=== PATIENT | female | born 1945 ===

== ENCOUNTER 2017-12-30 06:54 | Outpatient (CLI) | payer MEDICARE ==
--- NOTE | 2017-12-30 08:33 | Ultrasound Report ---
Procedure Date: 12/30/2017 Accession Number: [id number] / [id number] Procedure: US - Abdomen Limited CPT Code: FULL RESULT: EXAM: Abdomen Limited DATE: 12/30/2017 7:42 AM CLINICAL HISTORY: UNSPECIFIED ABDOMINAL PAIN COMPARISON: None. TECHNIQUE: Real-time scanning was performed with static images obtained. FINDINGS: Liver: The liver demonstrates a coarse echotexture with suggestion of a nodular surface and measures at least 14.7 cm. Main portal vein flow: Hepatopetal. Gallbladder: Normal. No stones, wall thickening, or sonographic Ruiz's sign. Biliary System: Common bile duct measures 5 mm. No intrahepatic or extrahepatic ductal dilatation. Pancreas: Visualized portion is unremarkable. Kidneys: Right: 10.3 cm longitudinally. Normal. No contour-deforming mass, stones, or hydronephrosis. The IVC is patent by color Doppler. IMPRESSION: Coarse liver echotexture with suggestion of a nodular contour and multiple views. RADIA
== END 2017-12-30 06:55 | disposition home or self-care (01) ==
LOC: DI 06:54
PROVIDERS: ATTEND Family Medicine
DX: R10.9 Unspecified abdominal pain (principal)
CPT/HCPCS: 76705

== ENCOUNTER 2022-05-28 08:03 | Outpatient (CLI) | payer MEDICARE ==
--- NOTE | 2022-05-28 11:30 | DEXA Report ---
PROCEDURE: Dexa Spine and/or Hip INDICATIONS: OSTEOPOROSIS TECHNIQUE: Dual energy x-ray absorptiometry (DXA) was performed on a Chikka System. Regions measur ed are the AP Spine, femoral neck, and if needed forearm. COMPARISON: DEXA 10/20/2014. FINDINGS: Lumbar Spine: Bone Mineral Density 0.951 g/cm/cm, T score -1.9, osteopenia Left Femoral Neck: Bone Mineral Density 0.785 g/cm/cm, T score -1.8, osteopenia Left Hip: Bone Mineral Density 0.789 g/cm/cm, T score -1.7, osteopenia (T score greater or equal to -1.0: NORMAL) (T score from -1.1 to -2.4: OSTEOPENIA) (T score less than or equal to -2.5 to: OSTEOPOROSIS) Impression: Lumbar spine and left hip osteopenia. Patients with diagnosis of osteoporosis or osteopenia should have regular bone mineral density assess ment. For those eligible for Medicare, routine testing is allowed once every 2 years. Testing frequ ency can be increased for patients who have rapidly progressing disease or for those who are receivin g medical therapy to restore bone mass. Reviewed by: Deondre Carter MD on 05/28/2022 11:29 AM PST Approved by: Deondre Carter MD on 05/28/2022 11:29 AM PST Station ID: [id number]
== END 2022-05-28 08:04 | disposition home or self-care (01) ==
LOC: DI 08:03
PROVIDERS: ATTEND Family Medicine
DX: Z78.0 Asymptomatic menopausal state (principal); M85.89 Other specified disorders of bone density and structure, multiple sites

== ENCOUNTER 2022-09-16 09:59 | Outpatient (CLI) | payer MEDICARE ==
--- NOTE | 2022-09-16 11:05 | SLEEP CARE CONSULTATION ---
Information from patient questionnaire entered by Isabella Lozada. I have reviewed and concur with the information entered by Isabella Lozada. This document represents the service I personally performed and the decisions made by me, Rocío Salas ARNP. History of Present Illness Service Date and Time: 09/16/2022 0959 Reason for Visit: New patient, Other Chief Complaint: reports: Snoring, Excessive daytime sleepiness, Fatigue Date of Onset: 10YRS Usual bedtime: 10PM Time it takes to fall asleep: 30MIN AFTER TAKING SLEEPING AIDS Snores at night: Yes Sleeps alone due to snoring: Yes Number of times waking at night: 2 Reasons for waking at night: reports: Choking, Snoring, Gasping for air, Pain, Bathroom, Other (NOISE) Toss, Turn, or Twitch while sleeping: Yes Recalls having dreams: Yes Usually gets out of bed at: 6AM Feels refreshed in the morning: Yes Morning headache: No Sleepy or fatigued during the day: Yes Ever fallen asleep while driving: No Takes day naps: Yes (30-60 mins daily) Dreams during day naps: Yes Prior sleep studies: No Additional HPI information: I had the pleasure of seeing DAMARI CROW today regarding the possibility of her having a sleep disorder. Her current complaint is that she snores very loudly at night. She also is very tired during the day and will fall asleep daily for a nap. Patient's primary language is [place] Islander. Interpreters John, ID# [id number] and Javi Gatica, ID# [id number], assisted in communication during visit. She states that she has woken herself up with her snoring. Her has told her that she breathes very hard at night. She has woke up gasping or choking in her sleep. - Parasomnia Symptoms Ever been unable to move upon waking from sleep: No Walks in sleep: No Talks in sleep: No Ever acted out dreams in sleep: No Ever felt weak in the knees when startled or emotional: No Bothered by creepy, crawly, restless sensations in legs: No Problems with memory or concentration: No Subjective Initial [place] Sleepiness Scale score: 10 (09/16/22) Past Medical History Past Medical History: reports: Arthritis (knees), GERD Social History The patient's occupation is a RETIRED. Patient is and lives in [place]. Have you smoked in the past 12 months: No Alcohol use: No Caffeine use: No Family History Family history of sleep disordered breathing: No Allergies and Home Medications Known drug allergies: No Drug allergies reviewed: Yes Home medication list reviewed: Yes (see updated listed in EMR) Review of Systems Weight loss over past 5 years: 30 lbs Cardiovascular: denies: high blood pressure Gastrointestinal: reports: nausea Neurological: denies: headaches Psychiatric: denies: anxiety, depression Ear/Nose/Throat: reports: dry mouth/throat (very dry in mornings) Musculoskeletal: reports: joint pain Immunologic: reports: sneezing, itching, allergies to food or environment Physical Exam Vital signs obtained and entered by: ISABELLA Bravo MA Blood Pressure: 128/64 (LEFT ARM) Cuff size: regular Heart Rate: 89 O2 Saturation: 95 Height: 5 ft 3 in Weight: 110 lb Body Mass Index: 19.5 BMI Classification: Normal Neck circumference: 13.5 Mouth and throat: normal Soft palate: long Hard palate: normal Uvula: normal Uvula visualization: 50% Mallampati Class II Tongue: normal in size Tonsils: small Neck: normal w/o lymphadenopathy or thyromegaly Heart: regular rate and rhythm Lungs: clear bilaterally Impression and Plan 1. Suspected Obstructive Sleep Apnea-Hypopnea Syndrome, as suggested by a history of loud and irregular snoring, gasping or choking in sleep, cognitive impairment, and excessive daytime sleepiness. Narrow oropharynx and obesity are common predisposing factors for obstructive sleep apnea-hypopnea syndrome. I recommend proceeding to polysomnography to confirm the diagnosis and to assess severity. If the patient has significant sleep disordered breathing, a manual CPAP titration study will also be performed to find the optimal treatment pressure. I informed the patient of what the sleep studies involve and after some discussion, obtained agreement to proceed. The pathophysiology of obstructive sleep apnea-hypopnea syndrome was discussed with the patient and health risks of cardiovascular and cerebrovascular disease if not treated. Risks of drowsy driving discussed in detail and patient advised to avoid long distance driving and to pull up hand at the first sign of drowsiness. Patient states, through transfer station operator, that she understands teaching and agrees to plan. * Schedule polysomnography +- manual CPAP titration study and return in 1-2 weeks after the study to discuss result and initiate therapy. * Review instructions provided by trained office staff on how to prepare for the sleep study. * Return for follow-up after sleep study completed. Visit Type: In Office Time Spent with Patient (minutes): 36 Provider Statement: I spent 100% of the Face to Face Visit with the patient with greater than 50% spent counseling the patient and coordination of care.
[2022-09-16 11:06] VITALS: BP 128/64
== END 2022-09-16 10:00 | disposition home or self-care (01) ==
LOC: SC 09:59
PROVIDERS: ATTEND Nurse Practitioner Family
DX: R53.83 Other fatigue (principal); R06.83 Snoring
CPT/HCPCS: 99203; G0463; 99212

== ENCOUNTER 2022-10-23 13:56 | Outpatient (CLI) | payer MEDICARE | END 2022-10-23 13:57 | disposition home or self-care (01) | LOC: SC 13:56 | PROVIDERS: ATTEND Nurse Practitioner Family | DX: G47.33 Obstructive sleep apnea (adult) (pediatric) (principal); R09.02 Hypoxemia; R00.0 Tachycardia, unspecified | CPT/HCPCS: G0399 ×2; 95806 ==

== ENCOUNTER 2022-10-29 12:43 | Outpatient (CLI) | payer MEDICARE ==
--- NOTE | 2022-10-29 13:40 | SLEEP CARE CONSULTATION ---
Information from patient questionnaire entered by Isabella Lozada. I have reviewed and concur with the information entered by Isabella Lozada. This document represents the service I personally performed and the decisions made by me, Rocío Salas ARNP. History of Present Illness Service Date and Time: 10/29/2022 1243 Initial [place] Sleepiness Scale score: 10 (09/16/22) Current [place] Sleepiness Scale score: 7 (10/29/22) Additional HPI information: DAMARI CROW returns for follow up and results of the recently performed home sleep study. She is primarily [place] speaking. We had an patternmaker apprentice wood Marie #[id number] to help with effective communication. I explained the pathophysiology behind obstructive sleep apnea. We then spent quite a bit of time discussing different treatment options. For mild obstructive sleep apnea, surgery and oral appliance are alternatives to nasal CPAP therapy but in moderate or severe cases, nasal CPAP is the most effective and reliable treatment. After some discussion, the patient opted to go with the nasal CPAP therapy. Nasal autoCPAP set at 4-15 cmH20 will be ordered with rationale explained. A manual titration study will be ordered if unable to find optimal pressure with office adjustments. I explained how CPAP machine works and what to expect when using the machine. Using CPAP every night in order to get used to it was emphasized. Patient advised to put CPAP mask on before getting into bed so as not to fall asleep without CPAP. To assist acclimation to CPAP use, it could also be used for a short time during day while reading or watching TV. The patient was instructed to call the CPAP supplier to discuss any mechanical problem that may occur. If the mask given is uncomfortable or is difficult to keep on through the night even with adjustment, contact the CPAP supplier as many will replace with another mask style if notified before 30 days. If snoring or perceives is not getting enough air or too much air from the machine, notify this office. Patient was cautioned about risks of drowsy driving until sleepiness symptoms resolve. Sleep Study - Results Type of Sleep Study: Home sleep study (COMPLETED 10/23/22) Prior sleep studies: No Polysomnography/Home Sleep Study results: Physician Impression: The quality of the study is good. The length of the study is adequate (> 240 minutes). Please also see the tabulated and graphic data. 1. Obstructive Sleep Apnea-Hypopnea (ICD-10 G47.33), mild, with an AHI of 10.6/hr and kiley SaO2 of 82%. During the study, the patient had 48 apneas (48 obstructive, 0 central, 0 mixed) and 37 hypopneas. The longest episode lasted 79.5 seconds. The patient did not sleep supine during this study. 2. Hypoxemia (ICD-10 R09.02), mild, with the lowest oxygen saturation of 82 % and 19.3 minutes with SaO2 under 90%. Baseline oxygen saturation was normal (Average oxygen saturation was 95%). 3. Tachycardia, mild, with maximum recorded heart rate of 128 beats per minute. Allergies and Home Medications Known drug allergies: No Drug allergies reviewed: Yes Home medication list reviewed: Yes (no changes) Allergy and home medication list: Allergies No Known Drug Allergies Allergy Review of Systems Review of systems same as previous: Yes (no changes) Physical Exam Vital signs obtained and entered by: ISABELLA Bravo MA Blood Pressure: 110/64 (LEFT ARM) Cuff size: regular Heart Rate: 79 O2 Saturation: 100 Height: 5 ft 3 in Weight: 117 lb 3.2 oz Body Mass Index: 20.7 BMI Classification: Normal Impression and Plan 1. Obstructive Sleep Apnea-Hypopnea Syndrome, mild, with lowest oxygen saturation of 82%. Obviously this is the cause of the patients symptoms of unrefreshed sleep, and excessive daytime sleepiness. Positive pressure therapy could benefit gastric reflux. As mentioned above, the patient will be started on nasal autoCPAP therapy with pressure set at 4-15 cmH2O. Compliance guidelines also reviewed. A copy of compliance guidelines will be given for reference at check out. 2. Hypoxemia, mild, with a kiley oxygen saturation of 82 % and 19.3 minutes spent under 90%. Her baseline oxygen saturation was normal with an average oxygen saturation of 95 %. * Nasal auto CPAP therapy, pressure at 4-15 cm H2O. * Avoid alcohol consumption near bedtime. * Avoid supine sleep until using CPAP. * The patient is again cautioned about driving until sleepiness completely resolves. * Return one month after CPAP obtained. I will assess response to therapy and compliance at that time. Visit Type: In Office Time Spent with Patient (minutes): 21 Provider Statement: I spent 100% of the Face to Face Visit with the patient with greater than 50% spent counseling the patient and coordination of care.
[2022-10-29 13:42] VITALS: BP 110/64
== END 2022-10-29 12:44 | disposition home or self-care (01) ==
LOC: SC 12:43
PROVIDERS: ATTEND Nurse Practitioner Family
DX: G47.33 Obstructive sleep apnea (adult) (pediatric) (principal); R09.02 Hypoxemia
CPT/HCPCS: 99213; G0463; 99212

== ENCOUNTER 2022-12-18 14:17 | Outpatient (CLI) | payer MEDICARE ==
--- NOTE | 2022-12-19 09:22 | Mammography Report ---
BILATERAL DIGITAL SCREENING MAMMOGRAM 3D/2D: 12/18/2022 CLINICAL: Routine screening. Comparison is made to exam dated: 10/20/2014 mammogram - [facility]. There are scattered areas of fibroglandular density in both breasts (category b / 25%-50% glandular t issue). There are benign calcifications in both breasts. No significant masses, calcifications, or other findings are seen in either breast. There has been no significant interval change. IMPRESSION: BENIGN There is no mammographic evidence of malignancy. A 1 year screening mammogram is recommended. Based on the Tyrer Cuzick model (a risk assessment model) the patients lifetime risk is 3.9% and her 10 year risk is 3.9%. According to the ACR, ACS, and NCCN guidelines, an annual breast MRI exam ilan g with mammogram is recommended if the patients lifetime risk is 20% or greater. This exam was interpreted at Station ID: [id number]. NOTE: For mammograms, a report in lay terms will be sent to the patient. Approximately 15% of breast malignancies will not be visualized mammographically. In the management of a palpable breast mass, a negative mammogram must not discourage biopsy of a clinically suspicious lesion. Electronically Signed By: Timoteo houston/shayne:12/18/2022 15:30:53 letter sent: No_Letter ACR BI-RADS Category 2: Benign Finding(s) 3342F PARENCHYMAL PATTERN: (A) - The breast(s) demonstrate(s) scattered fibroglandular densities. BI-RADS CATEGORY: (2) - 2 Mammogram [id number] 1 year screening LATERALITY: (B)
== END 2022-12-18 14:18 | disposition home or self-care (01) ==
LOC: DI 14:17
PROVIDERS: ATTEND Family Medicine
DX: Z12.31 Encounter for screening mammogram for malignant neoplasm of breast (principal)

== ENCOUNTER 2023-01-02 08:56 | Outpatient (CLI) | payer MEDICARE ==
--- NOTE | 2023-01-02 10:03 | Sleep Patient Instructions ---
Sleep Center Visit Summary - Patient Visit Information Reason for Visit: First compliance visit for CPAP therapy - Patient Instructions Additional Instructions: You were here for follow up of CPAP therapy. You will be continued on CPAP therapy with pressure at 4-15 cmH2O. You were fitted to a Respironics DreamWisp mask for you to try at home. You should follow up with sleep care in 1-2 months. You may contact us sooner for any questions or concerns. - Clinic Information Contact: [facility] [address] [place] [address] [email or web address] T: [phone]
--- NOTE | 2023-01-02 10:07 | SLEEP CARE CONSULTATION ---
Information from patient questionnaire entered by Isabella Lozada. I have reviewed and concur with the information entered by Isabella Lozada. This document represents the service I personally performed and the decisions made by , Rocío Salas ARNP. History of Present Illness Service Date and Time: 01/02/2023 0856 Previous diagnosis: Mild, Obstructive Sleep Apnea-Hypopnea Syndrome AHI: 10.6 (in 2022) Reason for follow up: first compliance Equipment type: CPAP (Resmed 11) Equipment obtained from: [employer] (got initial supplies) Mask style: Nasal (Airfit N20) Mask brand: Resmed Backup mask available: No (will keep old mask when replaced) Last cushion change: 1 week Prior sleep studies: No Type of Sleep Study: Home sleep study (COMPLETED 10/23/22) HPI additional information: DAMARI CROW was diagnosed to have mild, AHI 10.6, obstructive sleep apnea-hypopnea syndrome and returned today for CPAP therapy first compliance follow-up. Patient is a Icelandic speaker. [employer] interpreting used for effective communication, healthcare interpreter: Lis #[id number]. Sleep Study - Results Type of Sleep Study: Home sleep study (COMPLETED 10/23/22) Prior sleep studies: No CPAP Compliance Data Compliance data discussion: There is no data because of issue with data download thru [employer] site. She has only used it for a week. Subjective Patient concerns: reports: mask discomfort (leaking of mask), mask leak noise. denies: aerophagia, air blowing in eyes, condensation in mask/hose, nasal congestion, dry mouth, nose, throat, epistaxis Observed to snore while using device: No Current pressure setting perceived as: comfortable On therapy, patient: reports: sleeping better, awakening more refreshed. denies: drowsiness while driving Initial [place] Sleepiness Scale score: 10 (09/16/22) Current [place] Sleepiness Scale score: 15 Allergies and Home Medications Known drug allergies: No Drug allergies reviewed: Yes Home medication list reviewed: Yes (no changes) Allergy and home medication list: Allergies No Known Drug Allergies Allergy (Verified 01/01/23 14:12) Review of Systems Review of systems same as previous: No (Anemia) Physical Exam Vital signs obtained and entered by: ISABELLA Bravo MA Blood Pressure: 122/70 (LEFT ARM) Cuff size: regular Heart Rate: 74 O2 Saturation: 99 Height: 5 ft 3 in Weight: 121 lb 9.6 oz Body Mass Index: 21.5 BMI Classification: Normal Impression and Plan 1. Obstructive Sleep Apnea-Hypopnea Syndrome, mild, with unknown treatment co mpliance and unknown apnea control. On CPAP therapy, the patient has better sleep quality and is more rested overall. Patient states she is doing well with the machine and wearing it for 4 hours a night. She has only used it for a week. She states the mask she is using is leaking and noisy. I fitted her to a [id number] small cushion mask to try at home. I will have her come in 1-2 months to recheck compliance and data. Hopefully the ResMed issue will be fixed by that time. Patient's apnea severity and rationale for treatment to reduce apnea, improve sleep quality and reduce cardiovascular and cerebrovascular events was reviewed. I also reviewed the benefit of consistent device use of CPAP for gastric reflux. * Continue auto CPAP pressure at 4-15 cmH2O * Notify me if snoring with mask or feeling that the pressure is too much or too little * Call this office if any problems using CPAP * Return for follow up in 1-2 months, or sooner if concerns arise Counseling Topics: Spare mask Visit Type: In Office Time Spent with Patient (minutes): 29 Provider Statement: I spent 100% of the Face to Face Visit with the patient with greater than 50% spent counseling the patient and coordination of care.
[2023-01-02 10:12] VITALS: BP 122/70; O2SAT 99
== END 2023-01-02 08:57 | disposition home or self-care (01) ==
LOC: SC 08:56
PROVIDERS: ATTEND Nurse Practitioner Family
DX: G47.33 Obstructive sleep apnea (adult) (pediatric) (principal)
CPT/HCPCS: 99213; G0463; 99212

== ENCOUNTER 2023-03-13 08:33 | Outpatient (CLI) | payer MEDICARE ==
--- NOTE | 2023-03-13 09:33 | Sleep Patient Instructions ---
Sleep Center Visit Summary - Patient Visit Information Reason for Visit: 2 month follow up - Patient Instructions Additional Instructions: You were here for follow up of CPAP therapy. You will be continued on CPAP therapy with pressure at 10-14 cmH2O. Please let us know if the pressure change is uncomfortable and we can make further adjustments of the pressure. You should follow up with sleep care in 1-2 months. You may contact us sooner for any questions or concerns. - Clinic Information Contact: [facility] [address] [place] [id number] [email or web address] T: [phone]
--- NOTE | 2023-03-13 09:43 | SLEEP CARE CONSULTATION ---
Information from patient questionnaire entered by Isabella Lozada. I have reviewed and concur with the information entered by Isabella Lozada. This document represents the service I personally performed and the decisions made by , Rocío Salas ARNP. History of Present Illness Service Date and Time: 03/13/2023 0833 Previous diagnosis: Mild, Obstructive Sleep Apnea-Hypopnea Syndrome AHI: 10.6 (in 2022) Reason for follow up: other (2 MONTH F/U) Equipment type: CPAP (Resmed 11; s/u 10/2022) Equipment obtained from: [employer] (getting supplies) Mask style: Nasal (Airfit N20) Backup mask available: No (will need to call to get more supplies; keep old mask) Prior sleep studies: No Type of Sleep Study: Home sleep study (COMPLETED 10/23/22) HPI additional information: DAMARI CROW was diagnosed to have mild, AHI 10.6, obstructive sleep apnea-hypopnea syndrome and returned today for CPAP therapy 2 month follow-up. Her primary language is Gambian. [employer] interpreting services were utilized for communication with Kwame, ID# [id number]. Sleep Study - Results Type of Sleep Study: Home sleep study (COMPLETED 10/23/22) Prior sleep studies: No CPAP Compliance Data - Data Reviewed with Patient Average duration of nightly device use: 3 hours 18 mins Compliance rate %: 22 (48/60 days used) Current pressure setting (cmH2O): 4-15 (median 9.8, avg 13.5, max 14.1) Average residual AHI: 1.7 Central apnea: 0 Obstructive apnea: 0.3 Hypopnea: 1.3 Average large leak: 7.6 L/min Subjective Missed days of use due to: reports: other (machine not working one day because did not put together right; otherwise only sleep about 3 hours or so) Patient concerns: reports: mask leak noise. denies: aerophagia, mask discomfort, air blowing in eyes, condensation in mask/hose, nasal congestion, dry mouth, nose, throat, epistaxis Observed to snore while using device: No Current pressure setting perceived as: comfortable On therapy, patient: reports: sleeping better, awakening more refreshed, being more awake and alert during the day, more rested overall. denies: drowsiness while driving (does not drive, no car) Initial [place] Sleepiness Scale score: 10 (09/16/22) Current [place] Sleepiness Scale score: 14 (03/13/23) Allergies and Home Medications Known drug allergies: No Drug allergies reviewed: Yes Home medication list reviewed: Yes (no changes) Allergy and home medication list: Allergies No Known Drug Allergies Allergy (Verified 03/12/23 12:35) Review of Systems Review of systems same as previous: Yes (NO CHANGE) Physical Exam Vital signs obtained and entered by: ISABELLA Bravo MA Blood Pressure: 128/72 (LEFT ARM) Heart Rate: 85 O2 Saturation: 98 Height: 5 ft 3 in Weight: 130 lb 12.8 oz Body Mass Index: 23.1 BMI Classification: Normal Impression and Plan 1. Obstructive Sleep Apnea-Hypopnea Syndrome, mild, with poor treatment compliance and good apnea control. On CPAP therapy, the patient has better sleep quality and is more rested overall. She states she only sleeps 3 hours or more nightly. I am not sure she fully understands the concept of compliance. I stressed using the CPAP for 4 hours or more, trying to get more than 3 hours of sleep nightly. She voiced understanding. The patients pressure will be changed to autoCPAP 10-14 cmH20 to reflect pressure being used. Patient advised to contact me if pressure change is uncomfortable so that it can be adjusted. Goals for apnea control discussed. Patient's apnea severity and rationale for treatment to reduce apnea, improve sleep quality and reduce cardiovascular and cerebrovascular events was reviewed. I also reviewed the benefit of consistent device use of CPAP for gastric reflux. * Change auto CPAP pressure to 10-14 cmH2O * Notify me if snoring with mask or feeling that the pressure is too much or too little * Attempt to lose weight * Call this office if any problems using CPAP * Return for follow up in 1-2 months, or sooner if concerns arise Counseling Topics: Spare mask Follow up with Sleep Care in: 1-2 months Visit Type: In Office Time Spent with Patient (minutes): 26 Provider Statement: I spent 100% of the Face to Face Visit with the patient with greater than 50% spent counseling the patient and coordination of care.
[2023-03-13 09:44] VITALS: BP 128/72; O2SAT 98
== END 2023-03-13 08:34 | disposition home or self-care (01) ==
LOC: SC 08:33
PROVIDERS: ATTEND Nurse Practitioner Family
DX: G47.33 Obstructive sleep apnea (adult) (pediatric) (principal)
CPT/HCPCS: 99213; G0463; 99212

== ENCOUNTER 2023-05-05 08:18 | Outpatient (CLI) | payer MEDICARE ==
--- NOTE | 2023-05-05 08:53 | Sleep Patient Instructions ---
Sleep Center Visit Summary - Patient Visit Information Reason for Visit: Two month followup - Patient Instructions Additional Instructions: You were here for follow up of CPAP therapy. You will be continued on CPAP therapy with pressure at 10-14 cmH2O. You should follow up with sleep care in 3 months. You may contact us sooner for any questions or concerns. - Clinic Information Contact: [facility] [address] [place] [id number] [email or web address] T: [phone]
--- NOTE | 2023-05-05 08:56 | SLEEP CARE CONSULTATION ---
Information from patient questionnaire entered by Isabella Lozada. I have reviewed and concur with the information entered by Isabella Lozada. This document represents the service I personally performed and the decisions made by , Rocío Salas ARNP. History of Present Illness Service Date and Time: 05/05/2023817 Previous diagnosis: Mild, Obstructive Sleep Apnea-Hypopnea Syndrome AHI: 10.6 (in 2022) Reason for follow up: other (2MONTH F/U) Equipment type: CPAP (Resmed 11; s/u 10/2022) Equipment obtained from: [employer] (getting supplies) Mask style: Nasal (Airfit N20) Backup mask available: No Last cushion change: couple months Prior sleep studies: No Type of Sleep Study: Home sleep study (COMPLETED 10/23/22) HPI additional information: DAMARI CROW was diagnosed to have mild, AHI 10.6, obstructive sleep apnea-hypopnea syndrome and returned today for CPAP therapy two month follow-up. Her primary language is Norwegian. [employer] interpreting services were used for effective communication with weekend caregiver Lyly Webb, # [id number]. Sleep Study - Results Type of Sleep Study: Home sleep study (COMPLETED 10/23/22) Prior sleep studies: No CPAP Compliance Data - Data Reviewed with Patient Average duration of nightly device use: 5 HRS 1 MIN Compliance rate %: 77 (03/02/23-04/30/23; 60/60 days used) Current pressure setting (cmH2O): 10-14 Average residual AHI: 1.7 Central apnea: 0.1 Obstructive apnea: 0.1 Average large leak: 8.1 L/min Subjective Patient concerns: reports: air blowing in eyes (little). denies: aerophagia, mask discomfort, mask leak noise, condensation in mask/hose, nasal congestion, dry mouth, nose, throat, epistaxis Observed to snore while using device: No Current pressure setting perceived as: comfortable On therapy, patient: reports: sleeping better, awakening more refreshed, being more awake and alert during the day, more rested overall. denies: drowsiness while driving (She does not drive) Initial [place] Sleepiness Scale score: 10 (09/16/22) Current [place] Sleepiness Scale score: 6 (05/05/23) Allergies and Home Medications Known drug allergies: No Drug allergies reviewed: Yes Home medication list reviewed: Yes (no changes) Allergy and home medication list: Allergies No Known Drug Allergies Allergy (Verified 05/04/23 08:54) Review of Systems Review of systems same as previous: Yes (NO CHANGE) Physical Exam Vital signs obtained and entered by: ISABELLA Bravo MA Blood Pressure: 112/65 (LEFT ARM) Cuff size: regular Heart Rate: 88 O2 Saturation: 96 Height: 5 ft 3 in Weight: 136 lb Body Mass Index: 24.0 BMI Classification: Normal Impression and Plan 1. Obstructive Sleep Apnea-Hypopnea Syndrome, mild, with good treatment compliance and good apnea control. On CPAP therapy, the patient has better sleep quality and is more rested overall. Patient has significant improvement of their sleep apnea and is satisfied with current CPAP therapy. Patient has been able to increase her compliance and is doing well. She has no concerns or complaints today. We were able to adequately address all her needs using the box toe stitcher. I will have her follow-up in about 3 months. Patient's apnea severity and rationale for treatment to reduce apnea, improve sleep quality and reduce cardiovascular and cerebrovascular events was reviewed. I also reviewed the benefit of consistent device use of CPAP for gastric reflux. * Continue auto CPAP pressure at 10-14 cmH2O * Notify me if snoring with mask or feeling that the pressure is too much or too little * Maintain a healthy weight * Call this office if any problems using CPAP * Return for follow up in 3 months, or sooner if concerns arise Counseling Topics: Spare mask Follow up with Sleep Care in: 3 months Visit Type: In Office Time Spent with Patient (minutes): 20 Provider Statement: I spent 100% of the Face to Face Visit with the patient with greater than 50% spent counseling the patient and coordination of care.
[2023-05-05 08:58] VITALS: BP 112/65; O2SAT 96
== END 2023-05-05 08:19 | disposition home or self-care (01) ==
LOC: SC 08:18
PROVIDERS: ATTEND Nurse Practitioner Family
DX: G47.33 Obstructive sleep apnea (adult) (pediatric) (principal)
CPT/HCPCS: 99213; G0463; 99212

== ENCOUNTER 2023-08-04 08:19 | Outpatient (CLI) | payer MEDICARE ==
--- NOTE | 2023-08-04 09:28 | Sleep Patient Instructions ---
Sleep Center Visit Summary - Patient Visit Information Reason for Visit: 3-month follow-up - Patient Instructions Additional Instructions: You were here for follow up of CPAP therapy. You will be continued on CPAP therapy with pressure at 10-14 cmH2O. You should follow up with sleep care in 12 months. You may contact us sooner for any questions or concerns. - Clinic Information Contact: [facility] [address] [place] [address] [email or web address] T: [phone]
--- NOTE | 2023-08-04 09:33 | SLEEP CARE CONSULTATION ---
Information from patient questionnaire entered by Isabella Lozada. I have reviewed and concur with the information entered by Isabella Lozada. This document represents the service I personally performed and the decisions made by , Rocío Salas ARNP. History of Present Illness Service Date and Time: 08/04/2023 08 Previous diagnosis: Mild, Obstructive Sleep Apnea-Hypopnea Syndrome AHI: 10.6 (in 2022) Reason for follow up: three month (F/U) Equipment type: CPAP (Resmed 11; s/u 10/2022) Equipment obtained from: [employer] (getting supplies) Mask style: Nasal (Airfit N20) Backup mask available: Yes Last cushion change: 2 months ago Prior sleep studies: No Type of Sleep Study: Home sleep study (COMPLETED 10/23/22) HPI additional information: DAMARI CROW was diagnosed to have mild, AHI 10.6, obstructive sleep apnea-hypopnea syndrome and returned today for CPAP therapy three month follow- up. Patient primary language is Polish. [employer] interpreting services were used for effective communication. Tear Down Man: Estephania # [id number]. Sleep Study - Results Type of Sleep Study: Home sleep study (COMPLETED 10/23/22) Prior sleep studies: No CPAP Compliance Data - Data Reviewed with Patient Average duration of nightly device use: 4 HRS 23 MINS Compliance rate %: 62 (05/01/23-07/29/23; 80% in last 30 days; 87/90 days used) Current pressure setting (cmH2O): 10-14 Average residual AHI: 1.5 Central apnea: 0.1 Obstructive apnea: 0.1 Hypopnea: 1.2 Average large leak: 7.5 L/min Subjective Patient concerns: reports: mask leak noise. denies: aerophagia, mask discomfort, air blowing in eyes, condensation in mask/hose, nasal congestion, dry mouth, nose, throat, epistaxis Observed to snore while using device: No Current pressure setting perceived as: comfortable On therapy, patient: reports: sleeping better, awakening more refreshed, being more awake and alert during the day, more rested overall. denies: drowsiness while driving Initial [place] Sleepiness Scale score: 10 (09/16/22) Current [place] Sleepiness Scale score: 7 Allergies and Home Medications Known drug allergies: No Drug allergies reviewed: Yes Home medication list reviewed: Yes (no changes) Allergy and home medication list: Allergies No Known Drug Allergies Allergy (Verified 07/31/23 10:45) Review of Systems Review of systems same as previous: Yes (no changes) Physical Exam Vital signs obtained and entered by: ROCÍO MILLER Blood Pressure: 140/77 Cuff size: regular Heart Rate: 81 O2 Saturation: 98 Height: 5 ft 3 in Weight: 147 lb 11.2 oz Weight change since last visit: 11 lbs gain Body Mass Index: 26.2 BMI Classification: Overweight Impression and Plan 1. Obstructive Sleep Apnea-Hypopnea Syndrome, mild, with good treatment compliance and good apnea control. On CPAP therapy, the patient has better sleep quality and is more rested overall. Patient has significant improvement of their sleep apnea and is satisfied with current CPAP therapy. Patient denies problems with oral dryness, nasal congestion, epistaxis, skin irritation or aerophagia. She is doing very well and I think we can follow-up with her next year. She voiced understanding and agreement with plan of care. Patient's apnea severity and rationale for treatment to reduce apnea, improve sleep quality and reduce cardiovascular and cerebrovascular events was reviewed. I also reviewed the benefit of consistent device use of CPAP for gastric reflux. 2. Overweight, unspecified. Currently patients BMI is 26.2. She has gained weight since her last appointment. Obesity increases the risk of apnea, CPAP pressure requirements and overall health risks especially cardiovascular and diabetes. Thus patient is advised to lose weight. * Continue auto CPAP pressure at 10-14 cmH2O * Notify me if snoring with mask or feeling that the pressure is too much or too little * Maintatin a healthy weight * Call this office if any problems using CPAP * Return for follow up in 1 year, or sooner if concerns arise Counseling Topics: Spare mask, Weight control Follow up with Sleep Care in: 1 year Visit Type: In Office Time Spent with Patient (minutes): 25 Provider Statement: I spent 100% of the Face to Face Visit with the patient with greater than 50% spent counseling the patient and coordination of care.
[2023-08-04 09:34] VITALS: BP 140/77; O2SAT 98
== END 2023-08-04 08:20 | disposition home or self-care (01) ==
LOC: SC 08:19
PROVIDERS: ATTEND Nurse Practitioner Family
DX: G47.33 Obstructive sleep apnea (adult) (pediatric) (principal); E66.3 Overweight; Z68.26 Body mass index [BMI] 26.0-26.9, adult
CPT/HCPCS: 99213; G0463; 99212

== ENCOUNTER 2023-11-09 07:43 | Outpatient (CLI) | payer MEDICARE ==
--- NOTE | 2023-11-09 12:02 | Ultrasound Report ---
PROCEDURE: Abdomen Complete INDICATIONS: FECAL INCONTINENCE TECHNIQUE: Real-time scanning was performed of the abdominal and retroperitoneal organs, with image documentatio n. COMPARISON: None. FINDINGS: Liver: Liver is normal in size and heterogeneous in echotexture. Gallbladder: No gallstones, sludge, wall thickening or pericholecystic edema. Biliary ducts: Intrahepatic bile ducts are non-dilated. Extrahepatic bile duct caliber measures 2 mm. Normal is 6-7 mm or less in diameter, or 10 mm or less post-cholecystectomy. Pancreas: Not well visualized due to overlying bowel gas. Spleen: Spleen is normal in size and homogeneous in echotexture. Kidneys: Kidneys are normal in size and echotexture. Right kidney measures 7.7 cm long; left kidney measures 7.7 cm long. No hydronephrosis or nephrolithiasis. No solid masses. No complex renal cyst ic lesions which require follow-up. Aorta: Visualized aorta is normal in caliber at less than 3 cm. Iliacs: Proximal common iliac arteries are normal in caliber at less than 2.5 cm. IVC: Intrahepatic inferior vena cava is patent. Miscellaneous: No free abdominal fluid. IMPRESSION: 1. Slightly limited study due to overlying bowel gas. Pancreas is not well seen. 2. Mildly heterogeneous liver parenchymal echotexture suggestive of hepatic steatosis. No discrete he patic lesion. 3. Rest of the exam is unremarkable. Reviewed by: Lawrence James MD on 11/09/2023 12:01 PM PDT Approved by: Lawrence James MD on 11/09/2023 12:01 PM PDT Station ID: [id number]
== END 2023-11-09 07:44 | disposition home or self-care (01) ==
LOC: DI 07:43
PROVIDERS: ATTEND Family Medicine
DX: R15.9 Full incontinence of feces (principal); R15.2 Fecal urgency; K62.5 Hemorrhage of anus and rectum; K59.00 Constipation, unspecified